=== PATIENT | female | born 1985 | race Caucasian/White ===

== ENCOUNTER 2023-03-12 10:27 | Emergency (ER) | payer OTHER ==
[2023-03-12] MEDS ORDERED: IBUPROFEN 400 MG TABLET (FP) PO ONE ×2 (10:47→11:01)
[2023-03-12] MEDS ORDERED: LIDOCAINE 5% TOPICAL PATCH TP ONE (10:48)
[2023-03-12] MEDS ORDERED: LIDOCAINE 5% TOPICAL PATCH ONE (11:06)
[2023-03-12 11:09] VITALS: BP 116/81; PULSE 87; RESP 18; TEMP 98.5; BMI 21.9
== END 2023-03-12 11:15 | disposition home or self-care (01) ==
LOC: FER 10:27
DX: M54.2 Cervicalgia (principal); V49.40XA Driver injured in collision with unspecified motor vehicles in traffic accident, initial encounter; Y93.I9 Activity, other involving external motion; Y92.410 Unspecified street and highway as the place of occurrence of the external cause
CPT/HCPCS: 84703; 99283-25